=== PATIENT | female | born 1985 | race Caucasian/White ===

== ENCOUNTER 2017-08-10 08:16 | Emergency (ER) | payer OTHER ==
[~2017-08-10] VITALS: Ht 160 cm; Wt 78.0 kg
[2017-08-10 08:20] VITALS: TEMP 36.7; Ht 160 cm; Wt 78.0 kg
[2017-08-10] MEDS ORDERED: SODIUM CHLORIDE 0.9% 1000ML 1,000 ML IV STA (08:41)
[2017-08-10] MEDS ORDERED: ONDANSETRON INJ 2 MG/ML 2 ML VIAL IV STA (08:41)
[2017-08-10] MEDS ORDERED: MoRPHine SULFATE 4 MG/ML 1 ML CARP\\VIAL IV STA (08:41)
[2017-08-10 09:18] LABS: BASO % 0.3 %; BASO ABS # 0.02 K/uL (0-0.2); EOS % 1.6 %; EOS ABS # 0.09 K/uL (0-0.5); HEMATOCRIT 42.9 % (37-47); HEMOGLOBIN 14.5 g/dL (12.0-16.0); IG# 0.01 K/uL (0.00-0.02); LYMPH % 25.1 %; LYMPH ABS # 1.45 K/uL (1.2-3.4); MEAN CELL VOLUME 85.8 fL (80-100); MEAN CORPUSCULAR HGB CONC 33.8 g/dl (32-36); MEAN PLATELET VOLUME 9.8 fL (7.4-10.4); MONO ABS # 0.52 K/uL (0.11-0.59); NEUT % 63.8 %; NEUT ABS # 3.68 K/uL (1.4-6.5); PLATELET COUNT 249 K/uL (130-400); RED CELL DISTRIBUTION WIDTH CV 13.4 % (11.5-14.5); RED CELL DISTRIBUTION WIDTH SD 42.2 fL (36.4-46.3); WHITE BLOOD COUNT 5.77 K/uL (4.8-10.8)
--- NOTE | 2017-08-10 09:33 | DIAGNOSTIC IMAGING REPORT ---
CT OF THE ABDOMEN AND PELVIS WITHOUT CONTRAST, STONE PROTOCOL CLINICAL HISTORY: Flank pain and hematuria. COMPARISON STUDY: None. TECHNIQUE: Helical axial images of the abdomen and pelvis were obtained without IV or oral contrast according to renal stone protocol. A dose lowering technique was utilized adhering to the principles of ALARA. FINDINGS: No renal, ureteral or bladder calculi are present. There is no hydronephrosis or hydroureter. No perinephric infiltration is present. Evaluation the remainder of the abdomen and pelvis is suboptimal on this unenhanced exam. Unenhanced images of the liver, spleen, adrenal glands and pancreas are normal. There is no peripancreatic or pericholecystic infiltration. There is no lymphadenopathy. The appendix is normal. There is no free fluid. No suspicious osseous lesions are present. There is a retroaortic left renal vein. IMPRESSION: 1. No urinary calculi or hydronephrosis. 2. No acute process within the abdomen or pelvis on unenhanced exam. Electronically signed by: Kirby Kessler M.D. 08/10/2017 9:32 AM Dictated Date/Time: 08/10/2017 9:27 AM
[2017-08-10 09:43] LABS: ALBUMIN 3.7 gm/dl (3.4-5.0); CALCIUM 8.9 mg/dl (8.5-10.1); CREATININE 0.74 mg/dl (0.60-1.20); POTASSIUM 3.8 mmol/L (3.5-5.1)
[2017-08-10 09:46] LABS: TOTAL PROTEIN 7.7 gm/dl (6.4-8.2)
[2017-08-10] MEDS ORDERED: CIPROFLOXACIN 400MG / 200ML D5W IV STA (09:50)
[2017-08-10] MEDS ORDERED: CIPR-255 PO (10:04)
[2017-08-10] MEDS ORDERED: KETOROLAC TROMETHAMINE 30 MG/ML VIAL IV STA (10:11)
[2017-08-10 11:10] VITALS: BP 100/61; PULSE 82; O2SAT 99
--- NOTE | 2017-08-10 14:32 | EMERGENCY ROOM VISIT NOTE ---
History First contact with patient: 08:20 Chief Complaint: FLANK PAIN Stated Complaint: BACK PAIN History of Present Illness The patient is a 31 year old female who presents to the Emergency Room with complaints of left flank pain for the past week, and dysuria that started this morning. The patient reports no prior history of kidney stones or kidney infection. She also denies any prior history of urinary tract infections. The patient has had mild nausea without vomiting, fever or chills. Last menstruation was 2 weeks ago, and the patient denies . She denies any vaginal drainage, abdominal pain, chest pain, shortness of breath or cough. She has no alleviating factors for her pain. She rates her discomfort an 8 out of 10. Review of Systems HEENT: Denies dizziness, visual problems, hearing loss, tinnitus. Denies difficulty swallowing or oral lesions. PULMONARY: Denies cough, shortness of breath, sputum production or hemoptysis. CARDIOVASCULAR: Denies chest pain, palpitations, dyspnea on exertion, orthopnea or peripheral edema. GASTROINTESTINAL: Denies diarrhea, constipation, vomiting, or anterior abdominal pain. GENITOURINARY: See history of present illness. NEUROLOGIC: Denies history of epilepsy, CVA, TIA or chronic headaches. MUSCULOSKELETAL: Denies history of joint tenderness/swelling. SKIN: Denies rashes or lesions. PSYCHIATRIC: Denies history of depression or mental illness. ENDOCRINE: Denies history of diabetes or thyroid disorders. Past Medical/Surgical History Medical Problems: (1) No significant past medical history Surgical Problems: (1) No history of previous surgery Family History Unremarkable Social History Smoking Status: Never Smoker Alcohol Use: none Marital Status: single Housing Status: lives with family Occupation Status: employed Current/Historical Medications Scheduled Ciprofloxacin Hcl (Cipro), 500 MG PO BID Physical Exam Vital Signs Date Time Temp Pulse Resp B/P (MAP) Pulse Ox O2 Delivery O2 Flow Rate FiO2 08/10/17 11:10 82 18 100/61 99 08/10/17 09:16 86 18 111/73 99 Room Air 08/10/17 08:20 36.7 89 18 120/81 99 Room Air Physical Exam CONSTITUTIONAL: Healthy and well nourished. Alert and oriented X 3 with positive affect. Patient does not appear acutely or toxic. HEENT: Normocephalic, atraumatic. Pupils equal, round and reactive. No scleral icterus or conjunctival injection/pallor. NECK: Full active range of motion without discomfort. RESPIRATORY: Clear to auscultation bilaterally with no wheezing, crackles, rhonchi or stridor. CARDIOVASCULAR: Regular rate and rhythm with no murmurs, rubs or gallops. GASTROINTESTINAL: Bowel sounds present in all quadrants. Abdomen is soft and nontender to palpation. Positive left CVA tenderness. Negative McBurney's point tenderness. MUSCULOSKELETAL: Full range of motion of all joints without discomfort. INTEGUMENTARY: No rash or other significant dermatologic conditions noted. HEMATOLOGIC: No ecchymosis or petechiae. NEUROLOGIC: Cranial nerves II-XII grossly intact. No focal neurologic deficits noted. Medical Decision & Procedures ER Provider Diagnostic Interpretation: Noncontrast CT of the abdomen and pelvis does not show any evidence for ureteral calculi. Radiologist report is as follows: CT OF THE ABDOMEN AND PELVIS WITHOUT CONTRAST, STONE PROTOCOL CLINICAL HISTORY: Flank pain and hematuria. COMPARISON STUDY: None. TECHNIQUE: Helical axial images of the abdomen and pelvis were obtained without IV or oral contrast according to renal stone protocol. A dose lowering technique was utilized adhering to the principles of ALARA. FINDINGS: No renal, ureteral or bladder calculi are present. There is no hydronephrosis or hydroureter. No perinephric infiltration is present. Evaluation the remainder of the abdomen and pelvis is suboptimal on this unenhanced exam. Unenhanced images of the liver, spleen, adrenal glands and pancreas are normal. There is no peripancreatic or pericholecystic infiltration. There is no lymphadenopathy. The appendix is normal. There is no free fluid. No suspicious osseous lesions are present. There is a retroaortic left renal vein. IMPRESSION: 1. No urinary calculi or hydronephrosis. 2. No acute process within the abdomen or pelvis on unenhanced exam. Laboratory Results 08/10/17 08:50 Red Blood Count 5.00, Mean Corpuscular Volume 85.8, Mean Corpuscular Hemoglobin 29.0, Mean Corpuscular Hemoglobin Concent 33.8, Mean Platelet Volume 9.8, Neutrophils (%) (Auto) 63.8, Lymphocytes (%) (Auto) 25.1, Monocytes (%) (Auto) 9.0, Eosinophils (%) (Auto) 1.6, Basophils (%) (Auto) 0.3, Neutrophils # (Auto) 3.68, Lymphocytes # (Auto) 1.45, Monocytes # (Auto) 0.52, Eosinophils # (Auto) 0.09, Basophils # (Auto) 0.02 08/10/17 08:50 Test 08/10/17 08:48 08/10/17 08:50 Urine Color YELLOW Urine Appearance CLOUDY (CLEAR) Urine pH 5.5 (4.5-7.5) Urine Specific [place] 1.015 (1.000-1.030) Urine Protein NEG (NEG) Urine Glucose (UA) NEG (NEG) Urine Ketones NEG (NEG) Urine Occult Blood 1+ (NEG) Urine Nitrite POS (NEG) Urine Bilirubin NEG (NEG) Urine Urobilinogen NEG (NEG) Urine Leukocyte Esterase LARGE (NEG) Urine WBC (Auto) 10-30 /hpf (0-5) Urine RBC (Auto) 0-4 /hpf (0-4) Urine Hyaline Casts (Auto) 1-5 /lpf (0-5) Urine Epithelial Cells (Auto) >30 /lpf (0-5) Urine Bacteria (Auto) 4+ (NEG) Urine Test NEG (NEG) White Blood Count 5.77 K/uL (4.8-10.8) Red Blood Count 5.00 M/uL (4.2-5.4) Hemoglobin 14.5 g/dL (12.0-16.0) Hematocrit 42.9 % (37-47) Mean Corpuscular Volume 85.8 fL (80-100) Mean Corpuscular Hemoglobin 29.0 pg (25-34) Mean Corpuscular Hemoglobin Concent 33.8 g/dl (32-36) Platelet Count 249 K/uL (130-400) Mean Platelet Volume 9.8 fL (7.4-10.4) Neutrophils (%) (Auto) 63.8 % Lymphocytes (%) (Auto) 25.1 % Monocytes (%) (Auto) 9.0 % Eosinophils (%) (Auto) 1.6 % Basophils (%) (Auto) 0.3 % Neutrophils # (Auto) 3.68 K/uL (1.4-6.5) Lymphocytes # (Auto) 1.45 K/uL (1.2-3.4) Monocytes # (Auto) 0.52 K/uL (0.11-0.59) Eosinophils # (Auto) 0.09 K/uL (0-0.5) Basophils # (Auto) 0.02 K/uL (0-0.2) RDW Standard Deviation 42.2 fL (36.4-46.3) RDW Coefficient of Variation 13.4 % (11.5-14.5) Immature Granulocyte % (Auto) 0.2 % Immature Granulocyte # (Auto) 0.01 K/uL (0.00-0.02) Anion Gap 5.0 mmol/L (3-11) Est Creatinine Clear Calc Drug Dose 107.9 ml/min Estimated GFR () 124.2 Estimated GFR (Non- 107.2 BUN/Creatinine Ratio 11.7 (10-20) Calcium Level 8.9 mg/dl (8.5-10.1) Total Bilirubin 0.4 mg/dl (0.2-1) Aspartate Amino Transf (AST/SGOT) 11 U/L (15-37) Alanine Aminotransferase (ALT/SGPT) 18 U/L (12-78) Alkaline Phosphatase 56 U/L (45-117) Total Protein 7.7 gm/dl (6.4-8.2) Albumin 3.7 gm/dl (3.4-5.0) Globulin 4.0 gm/dl (2.5-4.0) Albumin/Globulin Ratio 0.9 (0.9-2) Lipase 128 U/L (73-393) The above labs were reviewed. Urinalysis is consistent with infection. Urine is negative, and urine cultures are pending. White count, electrolytes, LFTs and lipase are also grossly normal. Medications Administered Medications (Trade) Dose Ordered Sig/Lenka Route Start Time Stop Time Status Last Admin Dose Admin Sodium Chloride 1,000 ml @ 999 mls/hr Q1H1M STAT IV 08/10/17 08:41 08/10/17 09:41 DC 08/10/17 08:51 999 MLS/HR Morphine Sulfate (MoRPHine SULFATE INJ) 4 mg NOW STAT IV 08/10/17 08:41 08/10/17 08:43 DC 08/10/17 08:51 4 MG Ondansetron HCl (Zofran Inj) 4 mg NOW STAT IV 08/10/17 08:41 08/10/17 08:43 DC 08/10/17 08:51 4 MG Ciprofloxacin/ Dextrose (Cipro / D5W) 400 mg NOW STAT IV 08/10/17 09:50 08/10/17 09:51 DC 08/10/17 10:05 400 MG Ketorolac Tromethamine (Toradol Inj) 30 mg NOW STAT IV 08/10/17 10:11 08/10/17 10:12 DC 08/10/17 10:29 30 MG ED Course Patient history and physical exam were performed. Nurse's notes were reviewed. Vital signs were reviewed, showing no fever. The patient is normotensive and not tachycardic. IV access was established, and labs were drawn. The patient was hydrated with a liter normal saline. She was administered IV morphine and Zofran initially for discomfort. Labs were reviewed with urinalysis suggestive of infection. Urine was negative. Remaining labs were otherwise grossly normal. Noncontrast CT of the abdomen and pelvis was negative for ureteral calculus or other acute findings. The patient was administered IV Cipro for suspected pyelonephritis. The patient reported feeling much better, and requested discharge home. The patient will be provided a prescription for Cipro 500 mg twice a day 10 days. She was encouraged to take ibuprofen and Tylenol as needed for pain. She refused any prescription antiemetics. The patient was encouraged to follow-up with her PCP for recheck within the next few days. Return to the emergency department for any progressively worsening symptoms, and fever, persistent vomiting or other concerns. The patient was happy with plan of care, voiced understanding of all discharge instructions, and denied any significant discomfort at the conclusion of my exam. Medical Decision Patient presents to the emergency Department with primary complaint of left flank pain. Her CT scan does not show any evidence for ureteral calculus or other acute findings. Urinalysis is consistent with infection, and was CVA tenderness present, I suspect early pyelonephritis. The patient is afebrile and has no leukocytosis. The patient reported notable relief of her symptoms, therefore I feel that outpatient treatment is warranted at this point. Laboratory studies are not suggestive of pancreatitis, cholecystitis or hepatitis. Physical exam does not show any peritoneal signs. The appendix also appears normal on CT. [place] Drug Monitoring Program Search Results: patient reviewed within database, no issues identified Medication Reconcilliation Current Medication List: was personally reviewed by me Blood Pressure Screening Patient's blood pressure: Normal blood pressure Impression Primary Impression: Pyelonephritis Departure Information Prescriptions Ciprofloxacin Hcl (CIPRO) 500 Mg Tab 500 MG PO BID for 10 Days, #20 TAB Prov: Thiago Duenas PA 08/10/17 Referrals No Doctor, Assigned (PCP) Patient Instructions [facility]
--- NOTE | 2017-08-12 13:25 | Pharmacy Progress Note ---
ED Pharmacist Culture FollowUp Date of Service: Aug 12, 2017. Patient was sent home with a prescription for Ciprofloxacin 500 mg PO BID x 10 days, which should cover the E. coli growing from the patient's urine culture.
== END 2017-08-10 11:10 | disposition home or self-care (01) ==
LOC: C.EDB 08:17
DX: N12 Tubulo-interstitial nephritis, not specified as acute or chronic (principal)